=== PATIENT | female | born 1990 | race Caucasian/White ===

== ENCOUNTER 2016-11-11 19:33 | Emergency (ER) | payer OTHER ==
[~2016-11-11] VITALS: Ht 154.9 cm; Wt 57.0 kg
[~2016-11-11 19:33] MED LIST: FOLIC ACID
[2016-11-11 23:25] VITALS: BP 112/70
== END 2016-11-11 23:29 | disposition home or self-care (01) ==
LOC: ER 19:33
DX: S90.129A Contusion of unspecified lesser toe(s) without damage to nail, initial encounter (principal); O26.892 Other specified pregnancy related conditions, second trimester; Z3A.15 15 weeks gestation of pregnancy; W22.8XXA Striking against or struck by other objects, initial encounter; Y93.89 Activity, other specified; Y92.89 Other specified places as the place of occurrence of the external cause; Y99.8 Other external cause status
CPT/HCPCS: 99283; Z7610

== ENCOUNTER 2017-05-01 09:45 | Observation (INO) | payer OTHER ==
[~2017-05-01] VITALS: Ht 157.5 cm; Wt 63.5 kg
[2017-05-01] MEDS ORDERED: PNV1TABL76 PO (10:51)
[2017-05-01] MEDS ORDERED: ACET-2178 PO (10:55)
[2017-05-01] MEDS ORDERED: LACTATED RINGERS 1,000 ML IV SCH (10:57)
[2017-05-01 12:00] LABS: BASOPHILS % 0.3 % (0.0-2.0); EOSINOPHILS % 0.2 % (0.0-5.0); HEMATOCRIT. 40.1 % (36.0-48.0); HEMOGLOBIN. 13.8 g/dL (12.0-16.0); MEAN CORPUSCULAR HEMOGLOBIN 31.9 pg (28.0-32.0); MEAN CORPUSCULAR VOLUME 92.5 fL (81.0-99.0); MEAN PLATELET VOLUME 10.1 fl (7.4-10.4); MONOCYTES % 8.9 % (2.0-8.0); NEUTROPHILS % 62.6 % (40.0-76.0); PLATELET 150 x1000/uL (130-400); RED BLOOD CELL COUNT 4.33 mill/uL (4.2-5.4); RED CELL DISTRIBUTION WIDTH 14.4 % (11.6-14.6)
[2017-05-01 12:17] LABS: CLARITY URINE CLEAR (CLEAR); COLOR URINE YELLOW (YELLOW); KETONES URINE NEGATIVE (NEGATIVE); LEUKOCYTE ESTERASE URINE TRACE (NEGATIVE); NITRITE URINE NEGATIVE (NEGATIVE); OCCULT BLOOD URINE NEGATIVE (NEGATIVE); PH URINE >=9.0 (4.5-8.0); PROTEIN URINE NEGATIVE (NEGATIVE); SPECIFIC GRAVITY URINE 1.016 (1.005-1.030); UROBILINOGEN URINE 0.2 E.U./dL (0.2-1.0)
[2017-05-01 12:43] LABS: CHLORIDE 109 mEq/L (98-107)
[2017-05-01 13:20] LABS: PARTIAL THROMBOPLASTIN TIME 29.4 sec (23.4-31.0); PROTHROMBIN TIME 10.1 sec (9.4-11.6)
[2017-05-01] MEDS ORDERED: ACETAMINOPHEN 500MG TABLET PO NR (13:30)
== END 2017-05-01 14:45 | disposition home or self-care (01) ==
LOC: L&D 09:45
PROVIDERS: ADMIT Specialist; ATTEND Specialist
DX: O36.8130 Decreased fetal movements, third trimester, not applicable or unspecified (principal); Z3A.37 37 weeks gestation of pregnancy
CPT/HCPCS: 36415; 76815; 76818; 80053; 81003; 84550; 85025; 85384; 85610; 85730; 96360; 96361; 99281; G0378; J7120

== ENCOUNTER 2017-05-05 13:31 | Observation (INO) | payer OTHER ==
[~2017-05-05] VITALS: Ht 157.5 cm; Wt 63.5 kg
[~2017-05-05 13:31] MED LIST changes: +ACET-2178 PO; +PNV1TABL76 PO
== END 2017-05-05 14:56 | disposition home or self-care (01) ==
LOC: L&D 13:31
PROVIDERS: ADMIT Obstetrics & Gynecology; ATTEND Obstetrics & Gynecology
DX: O26.893 Other specified pregnancy related conditions, third trimester (principal); Z3A.37 37 weeks gestation of pregnancy
CPT/HCPCS: 99281; G0378

== ENCOUNTER 2019-04-26 10:46 | Emergency (ER) | payer OTHER ==
[~2019-04-26] VITALS: Ht 165.1 cm; Wt 59.0 kg
[~2019-04-26 10:46] MED LIST changes: -ACET-2178 PO; -FOLIC ACID; +TOPUD PO
[2019-04-26] MEDS ORDERED: ONDANSETRON 4MG ODT PO STA (11:36)
[2019-04-26 12:04] LABS: CLARITY URINE CLEAR (CLEAR); COLOR URINE YELLOW (YELLOW); KETONES URINE NEGATIVE (NEGATIVE); LEUKOCYTE ESTERASE URINE NEGATIVE (NEGATIVE); NITRITE URINE NEGATIVE (NEGATIVE); OCCULT BLOOD URINE NEGATIVE (NEGATIVE); PH URINE 7.5 (4.5-8.0); PROTEIN URINE NEGATIVE (NEGATIVE); SPECIFIC GRAVITY URINE 1.008 (1.005-1.030); UROBILINOGEN URINE 0.2 E.U./dL (0.2-1.0)
[2019-04-26 12:10] LABS: BASOPHILS % 0.4 % (0.0-2.0); HEMATOCRIT. 44.3 % (36.0-48.0); HEMOGLOBIN. 15.8 g/dL (12.0-16.0); LYMPHOCYTES % 18.6 % (20.0-50.0); MEAN CORPUSCULAR HEMOGLOBIN 32.2 pg (28.0-32.0); MEAN CORPUSCULAR VOLUME 90.2 fL (81.0-99.0); MEAN PLATELET VOLUME 9.3 fl (7.4-10.4); MONOCYTES % 6.4 % (2.0-8.0); NEUTROPHILS % 74.6 % (40.0-76.0); PLATELET 211 x1000/uL (130-400); RED BLOOD CELL COUNT 4.91 mill/uL (4.2-5.4); RED CELL DISTRIBUTION WIDTH 12.7 % (11.6-14.6)
[2019-04-26 12:11] LABS: CHLORIDE 106 mEq/L (98-107)
[2019-04-26 12:13] LABS: PROTHROMBIN TIME 11.1 sec (9.6-11.0)
[2019-04-26] MEDS ORDERED: ACETAMINOPHEN 500MG TABLET PO ONE (12:45)
[2019-04-26 13:54] VITALS: BP 114/61
== END 2019-04-26 13:54 | disposition home or self-care (01) ==
LOC: ER 10:46
DX: R10.9 Unspecified abdominal pain (principal)
CPT/HCPCS: 36415; 74176; 80053; 81003; 81025; 83690; 85025; 85610; 99284; Q0162

== ENCOUNTER 2020-12-26 01:03 | Emergency (ER) | payer OTHER ==
[~2020-12-26] VITALS: Ht 157.5 cm; Wt 56.0 kg
[2020-12-26 01:52] LABS: CLARITY URINE CLEAR (CLEAR); COLOR URINE YELLOW (YELLOW); KETONES URINE NEGATIVE (NEGATIVE); LEUKOCYTE ESTERASE URINE NEGATIVE (NEGATIVE); NITRITE URINE NEGATIVE (NEGATIVE); OCCULT BLOOD URINE NEGATIVE (NEGATIVE); PROTEIN URINE NEGATIVE (NEGATIVE); SPECIFIC GRAVITY URINE 1.005 (1.005-1.030); UROBILINOGEN URINE 0.2 E.U./dL (0.2-1.0)
[2020-12-26] MEDS ORDERED: KETOROLAC 60MG/2ML VIAL IM STA (02:35)
[2020-12-26 02:41] VITALS: BP 129/85
[2020-12-26 03:03] LABS: CHLORIDE 107 mEq/L (98-107)
[2020-12-26 03:10] LABS: BASOPHILS % 0.6 % (0.0-2.0); EOSINOPHILS % 1.1 % (0.0-5.0); HEMATOCRIT. 42.2 % (36.0-48.0); HEMOGLOBIN. 14.7 g/dL (12.0-16.0); LYMPHOCYTES % 48.1 % (20.0-50.0); MEAN CORPUSCULAR HEMOGLOBIN 31.9 pg (28.0-32.0); MEAN CORPUSCULAR VOLUME 91.6 fL (81.0-99.0); MEAN PLATELET VOLUME 9.7 fl (7.4-10.4); MONOCYTES % 7.6 % (2.0-8.0); NEUTROPHILS % 42.6 % (40.0-76.0); PLATELET 239 x1000/uL (130-400); RED CELL DISTRIBUTION WIDTH 12.7 % (11.6-14.6)
[2020-12-26] MEDS ORDERED: OMEP20CA14 MT (05:22)
[2020-12-26] MEDS ORDERED: POLY119P2 MT (05:22)
== END 2020-12-26 05:35 | disposition home or self-care (01) ==
LOC: ER 01:03
DX: R10.9 Unspecified abdominal pain (principal)
CPT/HCPCS: 36415; 74176; 80053; 81003; 81025; 83690; 85025; 96372; 99284; J1885